=== PATIENT | female | born 1945 | race Caucasian/White ===

== ENCOUNTER 2022-03-26 17:21 | Inpatient (IN) ==
[~2022-03-26 17:21] MED LIST: Magnesium Sulfate 1 GM IV 1 GM/100 ML BAG IV ONE
[2022-03-26 18:06] LABS: ABS Eosinophils 0.2 10^3/ul (0-0.6); ABS Lymphocytes 1.5 10^3/ul (1.0-4.8); ABS Monocytes 0.8 10^3/ul (0-0.8); ABS Neutrophils 4.3 10^3/ul (1.5-7.7); Eosinophil % 2.6 %; Hematocrit 46 % (35-47); Hemoglobin 15.3 g/dL (12.0-16.0); Mean Corpuscular HGB Conc 34 g/dL (31-36); Mean Corpuscular Hemoglobin 32 pg (27-31); Mean Corpuscular Volume 95 fL (80-97); Nucleated Red Blood Cells % 0.1; Platelet Count 150 10^3/uL (150-450); Red Blood Count 4.81 10^6 /uL (3.70-4.87); Red Cell Distribution Width 13 % (10-15); White Blood Count 6.8 10^3/uL (3.5-10.8)
[2022-03-26 18:13] LABS: INR 1.23 (0.89-1.11)
[2022-03-26 18:45] LABS: Albumin 3.1 g/dL (3.2-5.2); Albumin/Globulin Ratio 1.6 (1-3); C Reactive Protein 2.07 mg/L (<8.01); Calcium 9.1 mg/dL (8.6-10.3); Potassium 3.8 mmol/L (3.5-5.0); Total Bilirubin 1.4 mg/dL (0.2-1.0); Total Protein 5.1 g/dL (6.4-8.9); eGFR CKD-EPI 47.2 (>60)
[2022-03-26 18:59] LABS: TSH Ultra Thyroid Stim Horm 2.4 mcIU/mL (0.34-5.60)
[2022-03-26 19:55] LABS: Urine Appearance Clear; Urine Bilirubin Negative (Negative); Urine Blood Negative (Negative); Urine Color Yellow; Urine Glucose Negative (Negative); Urine Ketones Negative (Negative); Urine Nitrite Negative (Negative); Urine Protein Negative (Negative); Urine Specific Gravity 1.025 (1.005-1.030); Urine Urobilinogen >=8.0 (Negative); Urine pH 5.5 (5.0-9.0)
[2022-03-26 20:11] LABS: Urine Bacteria 1+ (Absent); Urine Granular Casts Present (Absent); Urine Red Blood Cell Trace(0-2/hpf) (Absent); Urine Squamous Epithelial Cell Present (Absent); Urine White Blood Cell Trace(0-5/hpf) (Absent)
[2022-03-26] MEDS ORDERED: Dextrose 50% Syringe 50 ml 25 GM/50 ML SYRINGE IV PUSH PRN (20:50)
[2022-03-26] MEDS ORDERED: Trospium 20 mg TAB (NF) PO SCH (21:00)
[2022-03-26 21:59] LABS: Direct Bilirubin 0.3 mg/dL (0.03-0.18)
[2022-03-26 22:25] LABS: Magnesium 1.5 mg/dL (1.9-2.7)
[2022-03-26] MEDS ORDERED: diazePAM INJ CARPUJECT 5 MG/ML SYRINGE IV ONE (22:44)
[2022-03-26] MEDS: Enoxaparin 40 MG/0.4 ML SYR SUBCUT SCH (22:58)
[2022-03-26] MEDS ORDERED: Magnesium Sulfate 2 GM IV (Premix) IVPB ONE (23:00)
[2022-03-26] MEDS ORDERED: Lactated Ringers 1000 ml BAG 1,000 ML IV SCH (23:00)
[2022-03-26] MEDS ORDERED: Magnesium Sulfate IV 3 GM in NS 0.9% 100 ml BAG 100 ML IVPB ONE (23:36)
[2022-03-27] MEDS: Lactulose 30 ml UDC PO SCH ×3 (01:34→09:13)
[2022-03-27 06:05] LABS: ABS Eosinophils 0.3 10^3/ul (0-0.6); ABS Lymphocytes 2.9 10^3/ul (1.0-4.8); ABS Monocytes 0.8 10^3/ul (0-0.8); ABS Neutrophils 2.8 10^3/ul (1.5-7.7); Eosinophil % 4.2 %; Hematocrit 42 % (35-47); Lymphocyte % 42.9 %; Mean Corpuscular HGB Conc 36 g/dL (31-36); Mean Corpuscular Hemoglobin 33 pg (27-31); Mean Corpuscular Volume 93 fL (80-97); Mean Platelet Volume 9.9 fL (7.4-10.4); Nucleated Red Blood Cells % 0.1; Platelet Count 140 10^3/uL (150-450); Red Cell Distribution Width 14 % (10-15); White Blood Count 6.8 10^3/uL (3.5-10.8)
[2022-03-27 06:31] LABS: Albumin/Globulin Ratio 1.7 (1-3); Direct Bilirubin 0.3 mg/dL (0.03-0.18); Globulin 1.8 g/dL (2-4); Indirect Bilirubin 0.9 mg/dL (0.3-1.0); Magnesium 2.2 mg/dL (1.9-2.7); Potassium 3.6 mmol/L (3.5-5.0); Total Bilirubin 1.2 mg/dL (0.2-1.0); Total Protein 4.8 g/dL (6.4-8.9); eGFR CKD-EPI 61.7 (>60)
[2022-03-27] MEDS ORDERED: Lactated Ringers 1000 ml BAG 1,000 ML IV SCH (06:38)
[2022-03-27 07:36] LABS: C Reactive Protein 4.87 mg/L (<8.01)
[2022-03-27] MEDS: NF: Trospium 20 mg TAB (NF) PO SCH ×2 (09:06→20:32)
[2022-03-27] MEDS: OLMESARTAN HYDROCHLOROTHIAZIDE PO SCH (09:06)
[2022-03-27 18:28] LABS: Hepatitis B Surface Antigen Nonreactive (Nonreactive)
[2022-03-27 18:33] LABS: Hepatitis A Ab IgM Negative (Negative)
[2022-03-27 18:34] LABS: Hepatitis B Core IgM Nonreactive (Nonreactive)
[2022-03-27 18:46] LABS: Hepatitis C Antibody Negative (Negative)
[2022-03-27] MEDS: Enoxaparin 40 MG/0.4 ML SYR SUBCUT SCH (20:31)
[2022-03-28 06:26] LABS: ABS Eosinophils 0.3 10^3/ul (0-0.6); ABS Lymphocytes 2.9 10^3/ul (1.0-4.8); ABS Monocytes 0.7 10^3/ul (0-0.8); Hematocrit 38 % (35-47); Hemoglobin 13.5 g/dL (12.0-16.0); Lymphocyte % 48.9 %; Mean Corpuscular HGB Conc 36 g/dL (31-36); Mean Corpuscular Hemoglobin 33 pg (27-31); Mean Corpuscular Volume 93 fL (80-97); Mean Platelet Volume 10.4 fL (7.4-10.4); Nucleated Red Blood Cells % 0.1; Platelet Count 146 10^3/uL (150-450); Red Blood Count 4.06 10^6 /uL (3.70-4.87); Red Cell Distribution Width 14 % (10-15)
[2022-03-28 06:52] LABS: Albumin 2.7 g/dL (3.2-5.2); Albumin/Globulin Ratio 1.7 (1-3); Calcium 8.6 mg/dL (8.6-10.3); Globulin 1.6 g/dL (2-4); Potassium 3.7 mmol/L (3.5-5.0); Total Bilirubin 0.6 mg/dL (0.2-1.0); Total Protein 4.3 g/dL (6.4-8.9); eGFR CKD-EPI 67.6 (>60)
[2022-03-28] MEDS: OLMESARTAN HYDROCHLOROTHIAZIDE PO SCH (07:28)
[2022-03-28] MEDS: NF: Trospium 20 mg TAB (NF) PO SCH (07:28)
[2022-03-28] MEDS ORDERED: Pravastatin 20 mg TAB (NF) PO SCH (09:00)
[2022-03-28] MEDS ORDERED: cefTRIAXone 1 gm/50 mL D5W 1 GM/50 ML BAG IV SCH (12:00)
[2022-03-28 15:33] VITALS: BP 95/54
[2022-03-29 09:53] LABS: Alpha 1 Antitrypsin A1A 139 mg/dL (100 - 190)
[2022-03-30 12:36] LABS: Tissue Transglutaminase IgA Ab <1.2 U/mL
[2022-03-30 15:00] LABS: Mitochondria M2 Antibody <0.1 U
[2022-03-30 15:08] LABS: Immunoglobulin A 191 mg/dL (61 - 356)
== END 2022-03-28 15:25 | disposition home or self-care (01) | DRG 442 ==
LOC: ED 17:21 → SUATTDRO 20:33 → EDHOLD 20:33 → MED 03-27 00:21
PROVIDERS: ADMIT Internal Medicine; ATTEND Hospitalist

== ENCOUNTER 2023-07-20 16:55 | Inpatient (IN) ==
[2023-07-20] MEDS: fentaNYL 100 mcg/2 ml 50 MCG/ML VIAL IV SLOW PU PRN ×2 (18:40→20:10)
[2023-07-20 19:28] LABS: ABS Eosinophils 0.1 10^3/uL (0.0-0.5); ABS Lymphocytes 1.7 10^3/uL (1.0-4.8); ABS Monocytes 0.8 10^3/uL (0.0-0.9); ABS Neutrophils 7.5 10^3/uL (1.5-7.6); ABS Nucleated RBC 0.01 10^3/ul; Eosinophil % 1.1 %; Hematocrit 41.8 % (35-45); Hemoglobin 14.6 g/dL (11.5-14.3); Mean Corpuscular Hemoglobin 33.6 pg (27-33); Mean Corpuscular Hgb Conc 34.9 g/dL (31-36); Mean Corpuscular Volume 96.2 fL (80-97); Mean Platelet Volume 9.4 fL (7.5-11.2); Nucleated Red Blood Cells % 0.1 %/100WBC (0.0-0.8); Platelet Count 152 10^3/uL (150-450); Red Blood Count 4.34 10^6/uL (3.63-4.92); Red Cell Distribution Width 15.6 % (12-17); White Blood Count 10.1 10^3/uL (3.8-11.8)
[2023-07-20 19:35] LABS: INR 1.29 (0.83-1.13)
[2023-07-20 19:47] LABS: ALT 15 U/L (7-52); Albumin 2.9 g/dL (3.2-5.2); Albumin/Globulin Ratio 1.3 (1-3); Alkaline Phosphatase 79 U/L (35-149); Blood Urea Nitrogen 15 mg/dL (6-24); CO2 Carbon Dioxide 22 mmol/L (22-32); Chloride 112 mmol/L (101-111); Creatinine, Serum 0.96 mg/dL (0.51-0.95); Globulin 2.2 g/dL (2-4); Glucose 159 mg/dL (70-100); Lipase 23 U/L (11.0-82.0); Magnesium 1.3 mg/dL (1.9-2.7); Sodium 141 mmol/L (135-145); Total Bilirubin 1.1 mg/dL (0.2-1.0); Total Protein 5.1 g/dL (6.4-8.9); eGFR CKD-EPI 60.9 (>60)
[2023-07-20 19:49] LABS: High Sens Troponin Baseline 8 pg/mL (<15)
[2023-07-20 19:54] LABS: Anion Gap 7 mmol/L (2-16)
[2023-07-20] MEDS ORDERED: Polyethylene Glycol 3350 17 GM PACKET PO PRN (20:43)
[2023-07-20] MEDS ORDERED: Senna TAB 8.6 mg TAB PO PRN (20:43)
[2023-07-20 20:48] LABS: Phosphorus 2.8 mg/dL (2.5-5.0); Potassium Redraw 3.8 mmol/L (3.5-5.0)
[2023-07-20] MEDS ORDERED: Dextrose 50% Syringe 50 ml 25 GM/50 ML SYRINGE IV PUSH PRN (20:51)
[2023-07-20 20:57] LABS: High Sensitivity Troponin 1 Hr 9 pg/mL (<15)
[2023-07-20] MEDS ORDERED: Glimepiride 2 mg TAB (NF) PO SCH (21:00)
[2023-07-20] MEDS ORDERED: Enoxaparin 40 MG/0.4 ML SYR SUBCUT SCH (21:00)
[2023-07-20] MEDS: HYDROmorphone 1 MG/1 ML SYRINGE IV PRN (21:08)
[2023-07-20] MEDS ORDERED: Trospium 20 mg TAB (NF) PO SCH (22:00)
[2023-07-20] MEDS: Senna TAB 8.6 mg TAB PO SCH (22:39)
[2023-07-21] MEDS: HYDROmorphone 1 MG/1 ML SYRINGE IV PRN ×3 (00:59→22:40)
[2023-07-21 03:51] LABS: Urine Appearance Turbid; Urine Bilirubin Negative (Negative); Urine Blood Negative (Negative); Urine Color Amber; Urine Glucose Negative (Negative); Urine Ketones Negative (Negative); Urine Nitrite Positive (Negative); Urine Protein 1+(30 mg/dL) (Negative); Urine Urobilinogen Positive (Negative)
[2023-07-21 03:58] LABS: Urine Bacteria 1+ (Absent); Urine Red Blood Cell Absent (Absent); Urine Squamous Epithelial Cell Present (Absent); Urine White Blood Cell 1+(6-10/hpf) (Absent)
[2023-07-21] MEDS ORDERED: LINACLOTIDE 72 MCG CAP (NF) PO PRN (06:17)
[2023-07-21] MEDS ORDERED: OLMESARTAN HYDROCHLOROTHIAZIDE PO SCH (09:00)
[2023-07-21] MEDS: Polyethylene Glycol 3350 17 GM PACKET PO SCH (09:56)
[2023-07-21] MEDS: Lactulose 30 ml UDC PO SCH (09:58)
[2023-07-21] MEDS: Senna TAB 8.6 mg TAB PO SCH ×2 (10:01→22:38)
[2023-07-21] MEDS ORDERED: Magnesium Sulf 4 GM/100 ML IV 4,000 MG/100 ML BAG IVPB ONE (10:11)
[2023-07-21] MEDS: NF: Trospium 20 mg TAB (NF) PO SCH ×2 (10:26→23:01)
[2023-07-21] MEDS: CMCS: Pravastatin 20 mg TAB (NF) PO SCH (11:25)
[2023-07-21 11:48] LABS: Magnesium 1.2 mg/dL (1.9-2.7); Phosphorus 3.7 mg/dL (2.5-5.0)
[2023-07-21] MEDS: fentaNYL 100 mcg/2 ml 50 MCG/ML VIAL IV SLOW PU PRN (19:24)
[2023-07-22] MEDS: HYDROmorphone 1 MG/1 ML SYRINGE IV PRN ×2 (05:02→12:08)
[2023-07-22 07:17] LABS: ABS Eosinophils 0.5 10^3/uL (0.0-0.5); ABS Lymphocytes 3.2 10^3/uL (1.0-4.8); ABS Monocytes 1.4 10^3/uL (0.0-0.9); ABS Neutrophils 4.9 10^3/uL (1.5-7.6); ABS Nucleated RBC 0.01 10^3/ul; Eosinophil % 5.1 %; Hematocrit 38.7 % (35-45); Hemoglobin 13.4 g/dL (11.5-14.3); Lymphocyte % 31.9 %; Mean Corpuscular Hemoglobin 33.3 pg (27-33); Mean Corpuscular Hgb Conc 34.7 g/dL (31-36); Mean Platelet Volume 9.5 fL (7.5-11.2); Nucleated Red Blood Cells % 0.1 %/100WBC (0.0-0.8); Platelet Count 146 10^3/uL (150-450); Red Blood Count 4.03 10^6/uL (3.63-4.92); Red Cell Distribution Width 15.7 % (12-17)
[2023-07-22 09:02] LABS: Calcium 8.7 mg/dL (8.6-10.3); Creatinine, Serum 1.16 mg/dL (0.51-0.95); Magnesium 1.9 mg/dL (1.9-2.7); Phosphorus 3.8 mg/dL (2.5-5.0); eGFR CKD-EPI 48.6 (>60)
[2023-07-22] MEDS: Lactulose 30 ml UDC PO SCH (10:25)
[2023-07-22] MEDS: Polyethylene Glycol 3350 17 GM PACKET PO SCH (10:27)
[2023-07-22] MEDS: CMCS: Pravastatin 20 mg TAB (NF) PO SCH (10:27)
[2023-07-22] MEDS: Senna TAB 8.6 mg TAB PO SCH (10:27)
[2023-07-22] MEDS: NF: Trospium 20 mg TAB (NF) PO SCH (10:27)
[2023-07-22] MEDS ORDERED: ceFAZolin 2 GM PREMIX 2 GM/50 ML BAG ONE (13:49)
[2023-07-22] MEDS ORDERED: Bupivacaine 0.5% SDV PF 30ML VIAL ONE (14:27)
[2023-07-22] MEDS ORDERED: fentaNYL 100 mcg/2 ml 50 MCG/ML VIAL ONE ×2 (14:32→18:05)
[2023-07-22] MEDS ORDERED: Rocuronium 50 mg VIAL 10 mg/ml 5 ml VIAL (50 mg) ONE (14:34)
[2023-07-22] MEDS ORDERED: Sevoflurane BOTTLE ONE (14:35)
[2023-07-22] MEDS ORDERED: HYDROmorphone 1 MG/1 ML SYRINGE IV PRN (14:45)
[2023-07-22] MEDS ORDERED: Naloxone 0.4 mg VIAL 0.4 mg/ml 1 ml VIAL IV PRN (14:45)
[2023-07-22] MEDS ORDERED: Phenylephrine 40 mcg/mL 10mL (400mcg) SYRINGE ONE (15:25)
[2023-07-22] MEDS: fentaNYL 100 mcg/2 ml 50 MCG/ML VIAL IV PRN ×4 (18:05→19:22)
[2023-07-22] MEDS ORDERED: Senna TAB 8.6 mg TAB PO PRN (20:21)
[2023-07-22] MEDS ORDERED: Magnesium Hydroxide LIQ 30 ML UDC PO PRN (20:21)
[2023-07-22] MEDS: Lactated Ringers 1000 ml BAG 1,000 ML IV SCH (22:55)
[2023-07-22] MEDS: Magnesium Hydroxide LIQ 30 ML UDC PO SCH (22:58)
[2023-07-22] MEDS: ceFAZolin 1 GM ADVAN 1 GM in NS 0.9% 50 ML 50 ML IVPB SCH (23:04)
[2023-07-23] MEDS: HYDROmorphone 1 MG/1 ML SYRINGE IV PRN ×2 (00:53→15:37)
[2023-07-23 06:14] LABS: ABS Lymphocytes 1.3 10^3/uL (1.0-4.8); ABS Neutrophils 6.9 10^3/uL (1.5-7.6); Hematocrit 28.4 % (35-45); Lymphocyte % 14.7 %; Mean Corpuscular Hemoglobin 33.8 pg (27-33); Mean Corpuscular Hgb Conc 35.2 g/dL (31-36); Mean Platelet Volume 9.3 fL (7.5-11.2); Platelet Count 122 10^3/uL (150-450); Red Blood Count 2.96 10^6/uL (3.63-4.92); Red Cell Distribution Width 15.5 % (12-17); White Blood Count 9.2 10^3/uL (3.8-11.8)
[2023-07-23 06:51] LABS: Creatinine, Serum 1.43 mg/dL (0.51-0.95); Magnesium 1.7 mg/dL (1.9-2.7); Phosphorus 3.2 mg/dL (2.5-5.0); Potassium 4.8 mmol/L (3.5-5.0); eGFR CKD-EPI 37.8 (>60)
[2023-07-23] MEDS ORDERED: Magnesium Sulfate IV 1GM/100ML 1 GM/100 ML BAG IV ONE (08:02)
[2023-07-23] MEDS: ceFAZolin 1 GM ADVAN 1 GM in NS 0.9% 50 ML 50 ML IVPB SCH ×2 (09:03→15:38)
[2023-07-23] MEDS: Lactulose 30 ml UDC PO SCH (09:06)
[2023-07-23] MEDS: Magnesium Hydroxide LIQ 30 ML UDC PO SCH ×2 (09:25→20:50)
[2023-07-23] MEDS: Lactated Ringers 1000 ml BAG 1,000 ML IV SCH (10:09)
[2023-07-23] MEDS: Enoxaparin 40 MG/0.4 ML SYR SUBCUT SCH (12:35)
[2023-07-23] MEDS: Senna TAB 8.6 mg TAB PO SCH (20:50)
[2023-07-23] MEDS ORDERED: cefTRIAXone 2 gm/50 mL D5W 2 GM/50 ML BAG IV SCH (21:00)
[2023-07-24 07:04] LABS: ABS Eosinophils 0.3 10^3/uL (0.0-0.5); ABS Lymphocytes 2.7 10^3/uL (1.0-4.8); ABS Neutrophils 4.9 10^3/uL (1.5-7.6); ABS Nucleated RBC 0.01 10^3/ul; Eosinophil % 2.9 %; Hematocrit 27.2 % (35-45); Hemoglobin 9.5 g/dL (11.5-14.3); Lymphocyte % 30.6 %; Mean Corpuscular Hemoglobin 33.7 pg (27-33); Mean Corpuscular Hgb Conc 35.1 g/dL (31-36); Mean Corpuscular Volume 96.1 fL (80-97); Nucleated Red Blood Cells % 0.1 %/100WBC (0.0-0.8); Platelet Count 129 10^3/uL (150-450); Red Blood Count 2.83 10^6/uL (3.63-4.92); Red Cell Distribution Width 16.1 % (12-17); White Blood Count 8.9 10^3/uL (3.8-11.8)
[2023-07-24 07:20] LABS: Calcium 8.1 mg/dL (8.6-10.3); Creatinine, Serum 1.34 mg/dL (0.51-0.95); Phosphorus 2.8 mg/dL (2.5-5.0); Potassium 4.7 mmol/L (3.5-5.0); eGFR CKD-EPI 40.8 (>60)
[2023-07-24] MEDS ORDERED: Lactated Ringers 1000 ml BAG 1,000 ML IV SCH (08:00)
[2023-07-24] MEDS: Senna TAB 8.6 mg TAB PO SCH ×2 (09:01→20:33)
[2023-07-24] MEDS: CMCS: Pravastatin 20 mg TAB (NF) PO SCH (09:01)
[2023-07-24] MEDS: Lactulose 30 ml UDC PO SCH (09:02)
[2023-07-24] MEDS: Magnesium Hydroxide LIQ 30 ML UDC PO SCH ×2 (09:03→20:33)
[2023-07-24] MEDS: Polyethylene Glycol 3350 17 GM PACKET PO SCH (09:04)
[2023-07-24] MEDS: Lactated Ringers 1000 ml BAG 1,000 ML IV SCH (10:56)
[2023-07-24] MEDS: Enoxaparin 40 MG/0.4 ML SYR SUBCUT SCH (12:37)
[2023-07-25] MEDS: Lactated Ringers 1000 ml BAG 1,000 ML IV SCH ×2 (02:17→16:48)
[2023-07-25 05:52] LABS: Hematocrit 26.9 % (35-45); Hemoglobin 9.3 g/dL (11.5-14.3); Mean Platelet Volume 8.9 fL (7.5-11.2); Platelet Count 145 10^3/uL (150-450)
[2023-07-25 06:09] LABS: Calcium 8.5 mg/dL (8.6-10.3); Creatinine, Serum 0.97 mg/dL (0.51-0.95); Potassium 4.9 mmol/L (3.5-5.0); eGFR CKD-EPI 60.2 (>60)
[2023-07-25] MEDS: Lactulose 30 ml UDC PO SCH (07:58)
[2023-07-25] MEDS: Polyethylene Glycol 3350 17 GM PACKET PO SCH (07:59)
[2023-07-25] MEDS: CMCS: Pravastatin 20 mg TAB (NF) PO SCH (08:00)
[2023-07-25 09:09] LABS: Rapid COVID-19 Molecular Undetected (Undetected)
[2023-07-25] MEDS ORDERED: Lactulose 30 ml UDC NG TUBE ONE (09:28)
[2023-07-25] MEDS: Senna TAB 8.6 mg TAB PO SCH ×2 (10:07→20:27)
[2023-07-25] MEDS: Magnesium Hydroxide LIQ 30 ML UDC PO SCH ×2 (10:07→20:27)
[2023-07-25] MEDS: Enoxaparin 40 MG/0.4 ML SYR SUBCUT SCH (11:52)
[2023-07-26 06:29] LABS: ABS Eosinophils 0.4 10^3/uL (0.0-0.5); ABS Lymphocytes 1.9 10^3/uL (1.0-4.8); ABS Monocytes 1.2 10^3/uL (0.0-0.9); ABS Neutrophils 3.4 10^3/uL (1.5-7.6); Eosinophil % 5.3 %; Hematocrit 26.2 % (35-45); Hemoglobin 9.1 g/dL (11.5-14.3); Mean Corpuscular Hemoglobin 33.9 pg (27-33); Mean Corpuscular Hgb Conc 34.9 g/dL (31-36); Mean Platelet Volume 8.7 fL (7.5-11.2); Platelet Count 151 10^3/uL (150-450); Red Cell Distribution Width 16.4 % (12-17); White Blood Count 6.8 10^3/uL (3.8-11.8)
[2023-07-26 06:47] LABS: Calcium 8.4 mg/dL (8.6-10.3); Creatinine, Serum 0.82 mg/dL (0.51-0.95); Magnesium 1.6 mg/dL (1.9-2.7); Phosphorus 2.5 mg/dL (2.5-5.0); eGFR CKD-EPI 73.6 (>60)
[2023-07-26] MEDS: Polyethylene Glycol 3350 17 GM PACKET PO SCH (08:40)
[2023-07-26] MEDS: Senna TAB 8.6 mg TAB PO SCH ×2 (08:40→22:01)
[2023-07-26] MEDS: Lactulose 30 ml UDC PO SCH (08:40)
[2023-07-26] MEDS: Magnesium Hydroxide LIQ 30 ML UDC PO SCH ×2 (08:40→22:01)
[2023-07-26] MEDS: CMCS: Pravastatin 20 mg TAB (NF) PO SCH (08:47)
[2023-07-26] MEDS: Enoxaparin 40 MG/0.4 ML SYR SUBCUT SCH (13:18)
[2023-07-27] MEDS: Polyethylene Glycol 3350 17 GM PACKET PO SCH (08:11)
[2023-07-27] MEDS: Senna TAB 8.6 mg TAB PO SCH ×2 (08:12→21:25)
[2023-07-27] MEDS: CMCS: Pravastatin 20 mg TAB (NF) PO SCH (08:12)
[2023-07-27] MEDS: Lactulose 30 ml UDC PO SCH (08:15)
[2023-07-27] MEDS: Magnesium Hydroxide LIQ 30 ML UDC PO SCH ×2 (08:15→21:25)
[2023-07-27 09:51] LABS: ABS Eosinophils 0.4 10^3/uL (0.0-0.5); ABS Lymphocytes 2.2 10^3/uL (1.0-4.8); ABS Monocytes 1.3 10^3/uL (0.0-0.9); ABS Neutrophils 3.8 10^3/uL (1.5-7.6); ABS Nucleated RBC 0.01 10^3/ul; Hematocrit 28.4 % (35-45); Hemoglobin 9.9 g/dL (11.5-14.3); Lymphocyte % 28.4 %; Mean Corpuscular Hemoglobin 34.1 pg (27-33); Mean Corpuscular Hgb Conc 34.9 g/dL (31-36); Mean Corpuscular Volume 97.7 fL (80-97); Mean Platelet Volume 8.2 fL (7.5-11.2); Nucleated Red Blood Cells % 0.2 %/100WBC (0.0-0.8); Platelet Count 180 10^3/uL (150-450); Red Blood Count 2.91 10^6/uL (3.63-4.92); Red Cell Distribution Width 16.3 % (12-17); White Blood Count 7.7 10^3/uL (3.8-11.8)
[2023-07-27] MEDS ORDERED: Magnesium Sulf 4 GM/100 ML IV 4,000 MG/100 ML BAG IVPB ONE (10:13)
[2023-07-27] MEDS: Enoxaparin 40 MG/0.4 ML SYR SUBCUT SCH (12:42)
[2023-07-28 07:22] LABS: ABS Eosinophils 0.2 10^3/uL (0.0-0.5); ABS Lymphocytes 1.5 10^3/uL (1.0-4.8); ABS Monocytes 1.1 10^3/uL (0.0-0.9); ABS Neutrophils 4.2 10^3/uL (1.5-7.6); Eosinophil % 2.7 %; Hematocrit 29.9 % (35-45); Hemoglobin 10.4 g/dL (11.5-14.3); Lymphocyte % 21.2 %; Mean Corpuscular Hgb Conc 34.8 g/dL (31-36); Mean Corpuscular Volume 97.6 fL (80-97); Mean Platelet Volume 8.6 fL (7.5-11.2); Nucleated Red Blood Cells % 0.1 %/100WBC (0.0-0.8); Platelet Count 203 10^3/uL (150-450); Red Blood Count 3.06 10^6/uL (3.63-4.92); Red Cell Distribution Width 16.6 % (12-17); White Blood Count 7.1 10^3/uL (3.8-11.8)
[2023-07-28 07:38] LABS: Calcium 8.6 mg/dL (8.6-10.3); Creatinine, Serum 0.73 mg/dL (0.51-0.95); Magnesium 1.6 mg/dL (1.9-2.7); Potassium 4.1 mmol/L (3.5-5.0); eGFR CKD-EPI 84.6 (>60)
[2023-07-28] MEDS: Polyethylene Glycol 3350 17 GM PACKET PO SCH (08:39)
[2023-07-28] MEDS: Senna TAB 8.6 mg TAB PO SCH ×2 (08:39→20:04)
[2023-07-28] MEDS: Magnesium Hydroxide LIQ 30 ML UDC PO SCH (08:39)
[2023-07-28] MEDS: Lactulose 30 ml UDC PO SCH (08:39)
[2023-07-28] MEDS: CMCS: Pravastatin 20 mg TAB (NF) PO SCH (08:44)
[2023-07-28] MEDS: Enoxaparin 40 MG/0.4 ML SYR SUBCUT SCH (11:40)
[2023-07-28] MEDS ORDERED: Magnesium Sulf 4 GM/100 ML IV 4,000 MG/100 ML BAG IVPB ONE (12:45)
[2023-07-29 09:29] LABS: Creatinine, Serum 0.7 mg/dL (0.51-0.95); Magnesium 1.8 mg/dL (1.9-2.7); Phosphorus 3.4 mg/dL (2.5-5.0); Potassium 4.1 mmol/L (3.5-5.0)
[2023-07-29 09:52] VITALS: BP 113/69
[2023-07-29] MEDS: Polyethylene Glycol 3350 17 GM PACKET PO SCH (10:00)
[2023-07-29] MEDS: Senna TAB 8.6 mg TAB PO SCH (10:00)
[2023-07-29] MEDS: Lactulose 30 ml UDC PO SCH (10:00)
[2023-07-29] MEDS: CMCS: Pravastatin 20 mg TAB (NF) PO SCH (10:04)
[2023-07-29 11:45] LABS: Rapid COVID-19 Molecular Undetected (Undetected)
== END 2023-07-29 11:45 | DRG 481 ==
LOC: EDHOLD 16:55 → ED 16:55 → SUATTDRO 20:43 → MED 07-21 18:47 → SSU 07-22 18:27
PROVIDERS: ADMIT Student in an Organized Health Care Education/Training Program; ATTEND Hospitalist

== ENCOUNTER 2023-10-21 15:11 | Inpatient (IN) ==
[2023-10-21 17:26] LABS: Venous Bicarbonate HCO3 24.4 mmol/L (24-28)
[2023-10-21 17:33] LABS: ABS Eosinophils 0.3 10^3/uL (0.0-0.5); ABS Lymphocytes 2.4 10^3/uL (1.0-4.8); ABS Monocytes 0.9 10^3/uL (0.0-0.9); ABS Neutrophils 3.1 10^3/uL (1.5-7.6); ABS Nucleated RBC 0.01 10^3/ul; Eosinophil % 4.5 %; Hematocrit 47.4 % (35-45); Hemoglobin 16.3 g/dL (11.5-14.3); Lymphocyte % 35.8 %; Mean Corpuscular Hemoglobin 32.8 pg (27-33); Mean Corpuscular Hgb Conc 34.4 g/dL (31-36); Mean Corpuscular Volume 95.3 fL (80-97); Nucleated Red Blood Cells % 0.2 %/100WBC (0.0-0.8); Platelet Count 149 10^3/uL (150-450); Red Blood Count 4.97 10^6/uL (3.63-4.92); Red Cell Distribution Width 18.6 % (12-17); White Blood Count 6.8 10^3/uL (3.8-11.8)
[2023-10-21 17:37] LABS: Urine Appearance Turbid; Urine Bilirubin Negative (Negative); Urine Blood Negative (Negative); Urine Color Yellow; Urine Glucose Negative (Negative); Urine Ketones Negative (Negative); Urine Nitrite Negative (Negative); Urine Protein Negative (Negative); Urine Specific Gravity 1.016 (1.002-1.030); Urine Urobilinogen 1+ (Negative); Urine pH 5.5 (5.0-8.0)
[2023-10-21] MEDS: NS 0.9% 1000 ml BAG 1,000 ML IV ONE (17:47)
[2023-10-21 17:55] LABS: High Sens Troponin Baseline 12 pg/mL (<15)
[2023-10-21 18:19] LABS: ALT 24 U/L (7-52); Albumin/Globulin Ratio 1.2 (1-3); Alkaline Phosphatase 135 U/L (35-149); Anion Gap 6 mmol/L (2-16); Blood Urea Nitrogen 24 mg/dL (6-24); CO2 Carbon Dioxide 25 mmol/L (22-32); Calcium 11.6 mg/dL (8.6-10.3); Chloride 104 mmol/L (101-111); Creatinine, Serum 1.08 mg/dL (0.51-0.95); Globulin 2.5 g/dL (2-4); Glucose 131 mg/dL (70-100); Sodium 135 mmol/L (135-145); Total Bilirubin 1.5 mg/dL (0.2-1.0); Total Protein 5.5 g/dL (6.4-8.9); eGFR CKD-EPI 52.9 (>60)
[2023-10-21 18:27] LABS: TSH Ultra Thyroid Stim Horm 1.42 mcIU/mL (0.34-5.60)
[2023-10-21 19:46] LABS: Magnesium 1.3 mg/dL (1.9-2.7); Potassium Redraw 4.1 mmol/L (3.5-5.0)
[2023-10-21] MEDS: Lactulose 30 ml UDC PO ONE (22:03)
[2023-10-21] MEDS: Magnesium Sulfate 2 gm BAG 2 GM/50 ML BAG IVPB ONE (22:03)
[2023-10-22] MEDS: NS 0.9% 1000 ml BAG 1,000 ML IV ONE (00:02)
[2023-10-22] MEDS: Magnesium Sulfate IV 1GM/100ML 1 GM/100 ML BAG IV ONE (00:02)
[2023-10-22] MEDS: Enoxaparin 40 MG/0.4 ML SYR SUBCUT SCH (00:03)
[2023-10-22 05:03] LABS: ABS Eosinophils 0.3 10^3/uL (0.0-0.5); ABS Lymphocytes 3.1 10^3/uL (1.0-4.8); ABS Monocytes 0.8 10^3/uL (0.0-0.9); ABS Neutrophils 1.9 10^3/uL (1.5-7.6); ABS Nucleated RBC 0.02 10^3/ul; Eosinophil % 5.1 %; Hematocrit 39.3 % (35-45); Hemoglobin 13.4 g/dL (11.5-14.3); Lymphocyte % 50.1 %; Mean Corpuscular Hemoglobin 32.3 pg (27-33); Mean Corpuscular Hgb Conc 34.1 g/dL (31-36); Mean Corpuscular Volume 94.8 fL (80-97); Mean Platelet Volume 8.9 fL (7.5-11.2); Nucleated Red Blood Cells % 0.4 %/100WBC (0.0-0.8); Platelet Count 173 10^3/uL (150-450); Red Blood Count 4.15 10^6/uL (3.63-4.92); Red Cell Distribution Width 18.5 % (12-17); White Blood Count 6.2 10^3/uL (3.8-11.8)
[2023-10-22 05:35] LABS: Calcium 10.4 mg/dL (8.6-10.3); Creatinine, Serum 0.88 mg/dL (0.51-0.95); Potassium 3.8 mmol/L (3.5-5.0); eGFR CKD-EPI 67.6 (>60)
[2023-10-22 08:13] LABS: Magnesium 1.8 mg/dL (1.9-2.7)
[2023-10-22] MEDS: Magnesium Sulfate 2 gm BAG 2 GM/50 ML BAG IVPB ONE (10:10)
[2023-10-22] MEDS: Lactulose 30 ml UDC PO SCH (16:58)
[2023-10-23 09:28] LABS: Calcium 10.5 mg/dL (8.6-10.3); Creatinine, Serum 0.78 mg/dL (0.51-0.95); Magnesium 1.4 mg/dL (1.9-2.7); Potassium 3.4 mmol/L (3.5-5.0); eGFR CKD-EPI 78.2 (>60)
[2023-10-23] MEDS: CMC:Pravastatin 20 mg TAB (NF) PO SCH (09:53)
[2023-10-23] MEDS: Magnesium Sulf 4 GM/100 ML IV 4,000 MG/100 ML BAG IVPB ONE (13:53)
[2023-10-23] MEDS: Potassium Chloride LIQUID 20 MEQ/15 ML LIQUID PO ONE (13:53)
[2023-10-24] MEDS: Ondansetron 4 mg VIAL 2 MG/ML 2 ml VIAL IV ONE (22:45)
[2023-10-25 07:36] LABS: Calcium 9.5 mg/dL (8.6-10.3); Creatinine, Serum 0.75 mg/dL (0.51-0.95); Magnesium 1.3 mg/dL (1.9-2.7); eGFR CKD-EPI 81.9 (>60)
[2023-10-25] MEDS: Magnesium Sulf 4 GM/100 ML IV 4,000 MG/100 ML BAG IVPB ONE (09:04)
[2023-10-25 10:56] VITALS: BP 117/53
[2023-10-28 08:02] LABS: Creatinine, Serum 0.82 mg/dL (0.51-0.95); Magnesium 1.4 mg/dL (1.9-2.7); Potassium 3.5 mmol/L (3.5-5.0); eGFR CKD-EPI 73.6 (>60)
== END 2023-10-25 12:50 | DRG 441 ==
LOC: ED 15:11 → EDHOLD 15:11 → SUATTDRO 23:57 → MED 10-22 12:20
PROVIDERS: ADMIT Internal Medicine; ATTEND Student in an Organized Health Care Education/Training Program